=== PATIENT | male | born 1985 | race Caucasian/White ===

== ENCOUNTER 2023-11-23 08:06 | Emergency (ER) | payer SELFPAY ==
[2023-11-23 08:07] VITALS: BP 143/91; PULSE 92; RESP 18; TEMP 36; O2SAT 100; BMI 28.5
--- NOTE | 2023-11-23 08:18 | EDS_ITS ---
HPI History of Present Illness Chief Complaint: Back Informant: patient Onset/Context/Timing Onset: Month(s) Context: Gradual Onset Timing: Waxes and wanes Narrative Narrative: Patient presents secondary to lower back pain and sciatica. He has a history of L4, L5, S1 fusion in 2004. He states every 3 years or so he will get a flare of pain. About 3 months ago he bent over and felt something pull in his lower back. His doctor gave him oral prednisone and muscle relaxers. He states the pain was nearly resolved but never completely subsided and is now worsened. He states usually a Kenalog shot helped him better than the oral prednisone. He is from [place] and is here working 3 weeks at a time and then back home for a week. There is been no recent injury or trauma to his back. He has no problems with bowel or bladder control. No paresthesias. [facility] Medical History (Updated 11/23/23 @ 08:[address] Jennifer Rodriguez MD) Fusion of lumbar spine Home Medications ?Medication ?Instructions ?Recorded ?Last Taken ?Type cyclobenzaprine 10 mg tablet 10 mg PO TID PRN Muscle Spasm #20 11/23/23 Unknown Rx TABLETS Allergy/AdvReac Type Severity Reaction Status Date / Time No Known Allergies Allergy Verified 11/23/23 08:07 Surgical History (Updated 11/23/23 @ 08:[address] Jennifer Rodriguez MD) S/P lumbar spinal fusion Social History Smoking Status: Current every day smoker tobacco type: cigarettes ROS ROS ED Constitutional Constitutional ED: Denies chills or fever(s) ENT ENT ED: Denies rhinorrhea or sore throat Cardiovascular Cardiovascular: Denies chest pain Respiratory/Chest Respiratory/Chest: Denies cough or dyspnea Gastrointestinal Gastrointestinal: Denies abdominal pain, nausea or vomiting Genitourinary Genitourinary ED: Denies dysuria Musculoskeletal Musculoskeletal: Reports back pain and extremity pain Integumentary Denies Abrasions or rash Neurologic Neurologic: Denies headache(s), paresthesias or weakness Allergic/Immunologic Allergic/Immunologic ED: Denies lip swelling or urticaria EXAM Physical Exam Const Vital Signs: 11/23/23 08:07 Temperature 96.8 F L Temperature Source Temporal Pulse Rate 92 Respiratory Rate 18 Blood Pressure 143/91 H Blood Pressure Mean 108 Pulse Ox 100 Oxygen Delivery Method Room Air Positive well nourished and well developed General Appearance ED: well developed HEENT Reports moist mucous membranes Eyes EOMs intact bilaterally Resp normal respiratory effort and clear to auscultation bilaterally Cardio regular rate and regular rhythm GI soft to palpation and non-tender Back/Spine Back/Spine Narrative: Mild tenderness in the low lumbar paraspinals to the left. Extremity normal to inspection Neuro oriented x3 and no sensory deficits noted Motor Exam: strength 5/5 throughout Psych mental status grossly normal Skin no rashes or lesions noted MDM MDM MDM Narrative Medical decision making narrative: Patient be given IM Kenalog shot here. I will write her prescription for muscle relaxers that he can take at night. He will follow-up with his primary care physician in [place] during his week off and return trip home. Discharge Plan Triage Chief Complaint: Back ED Provider: Jennifer Rodriguez Dx/Rx/DC Orders Clinical Impression: Sciatica Instructions: ED Sciatica Prescriptions: New cyclobenzaprine 10 mg tablet 10 mg PO TID PRN (Reason: Muscle Spasm) Qty: 20 0RF Primary Care Provider: Arjun Aguirre,Out of Referrals: Arjun Aguirre,Out of [Primary Care Provider] - Activity Restrictions/Additional Instructions: Follow-up with your doctor during your return trip home. Print Language: Icelandic Disposition Disposition: Home, Self Care
[2023-11-23] MEDS: Triamcinolone Acetonide 40 MG/ML Vial IM (08:24)
[2023-11-23 08:35] VITALS: BP 143/92; PULSE 82; RESP 18; TEMP 36.2; O2SAT 98
[2023-11-23 08:44] VITALS: BP 143/91; PULSE 82; RESP 18; TEMP 36.2; O2SAT 98
== END 2023-11-23 08:44 | disposition home or self-care (01) ==
PROVIDERS: Emergency Provider Emergency Medicine; Visit Provider Emergency Medicine
DX: M54.30 Sciatica, unspecified side (principal); F17.210 Nicotine dependence, cigarettes, uncomplicated; Z98.1 Arthrodesis status
CPT/HCPCS: 96372; 99282